=== PATIENT | male | born 1960 | race Caucasian/White ===

== ENCOUNTER → 2018-12-08 | Outpatient (CLI) | payer SELFPAY ==
--- NOTE | 2018-12-08 16:24 | CT ---
EXAM DESCRIPTION: Cardiac Calcium Scoring Screen: Computed Tomography. CLINICAL HISTORY: Coronary Artery Calcium Scoring COMPARISON: None. TECHNIQUE: Spiral-axial scans at 2.5 x 0.4 mm intervals through the coronary arteries without IV contrast. Special algorithm was used, and cardiac gating. No reconstructions. Total Exam DLP: 128.1 mGy-cm. This exam was performed according to our departmental CT dose-optimization program which includes automated exposure control, adjustment of the mA and/or kV according to patient size and/or use of iterative reconstruction technique; to reduce radiation dose to as low as reasonably achievable (ALARA). Some images may have been skipped or repeated due to the heart rhythm or respiration. FINDINGS: The patient has a total Agatston calcium score of 0.. This places the patient in the 0 percentile in comparison to a group of patients asymptomatic for coronary artery disease with the same age and gender. This means that no males of ages 56-60 have calcium scores lower than the patient. The included mediastinum, bilateral rk, and included christ-hilar lung show possible gynecomastia versus mass left breast. Small mediastinal lymph nodes. Minimal perihilar peribronchial wall thickening in the included airways.. IMPRESSION: 1. Total coronary artery calcium score of 0. 0 percentile for age and gender. 2. The included mediastinum, lung, and christ-hilar areas showing gynecomastia left breast versus mass. Minimal perihilar peribronchial wall lymph node. Mediastinal lymph nodes are not enlarged. 3. Recommend clinical evaluation of bilateral breast tissue, consider bilateral diagnostic digital breast tomosynthesis. . Electronically signed by: Aramis Singh MD 12/08/2018 4:23 PM CDT
== END ==
LOC: CT 15:16
PROVIDERS: ATTEND General Practice
DX: R07.9 Chest pain, unspecified (principal); R92.8 Other abnormal and inconclusive findings on diagnostic imaging of breast